=== PATIENT | male | born 1975 | race Caucasian/White ===

== ENCOUNTER 2017-03-18 17:07 | Observation (INO) | payer MEDICAID, OTHER ==
[2017-03-18 17:07] VITALS: BMI 28.6
[2017-03-18 17:24] VITALS: BP 97/71; PULSE 60; RESP 17; TEMP 98.4; O2SAT 100
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
--- NOTE | 2017-03-18 22:57 | ED PDOC ---
- ECG O2 Sat by Pulse Oximetry: 100 Medical Decision Making Medical Decision Making: pt signed out to me pending sobriety. ambulatory steady gait. no signs of withdrawl. will d/c home. Disposition - Clinical Impression Clinical Impression: Alcohol abuse with intoxication, Rib contusion - POA Present On Arrival: None - Disposition Disposition: Routine/Home Disposition Time: 22:55 Condition: GOOD
== END 2017-03-19 04:14 | disposition home or self-care (01) ==
LOC: H.ER 17:07 → H.EROBSV 17:54
PROVIDERS: ADMIT Emergency Medicine; ATTEND Emergency Medicine
DX: F10.129 Alcohol abuse with intoxication, unspecified (principal); Y90.8 Blood alcohol level of 240 mg/100 ml or more; S20.212D Contusion of left front wall of thorax, subsequent encounter; Y09 Assault by unspecified means

== ENCOUNTER 2017-03-25 10:37 | Emergency (ER) | payer MEDICAID ==
[2017-03-25 10:52] VITALS: TEMP 97; O2SAT 99; BMI 21.2
[2017-03-25 11:02] VITALS: BP 118/70; PULSE 84; RESP 20
--- NOTE | 2017-03-25 11:15 | ED PDOC ---
HPI: Skin/Bite Injury Time Seen by Provider: 03/25/17 10:59 Chief Complaint (Nursing): Anxiety Chief Complaint (Provider): Boils History Per: Patient History/Exam Limitations: no limitations Onset/Duration Of Symptoms: Days (1 month) Current Symptoms Are (Timing): Still Present Additional Complaint(s): Axilla and few scattered in groin and legs with boils. Ongoing for 1 month. Squeezes them and occasionally gets purulent dc. Mild tender. Occasionally gets chills. No nausea, vomit, diarrhea, weakness, abd pain, headaches, dizziness. No testicular pain. Past Medical History Reviewed: Nursing Documentation, Vital Signs Vital Signs: Last Vital Signs Temp 97 F L 03/25/17 10:59 Pulse 84 03/25/17 10:59 Resp 20 03/25/17 10:59 BP 118/70 03/25/17 10:59 Pulse Ox 99 03/25/17 10:59 - Medical History PMH: No Chronic Diseases Denies: HIV, HTN, Chronic Kidney Disease, Sexually Transmitted Disease - Surgical History Surgical History: No Surg Hx - Family History Family History: States: Unknown Family Hx - Living Arrangements Living Arrangements: Other (homeless) - Social History Current smoker - smoking cessation education provided: No Alcohol: Occasional Drugs: Denies - Immunization History Hx Tetanus Toxoid Vaccination: No Hx Influenza Vaccination: No Hx Pneumococcal Vaccination: No - Home Medications Home Medications: Ambulatory Orders Medication Instructions Recorded Clindamycin [Cleocin] 300 mg PO QID 7 Days 03/25/17 - Allergies Allergies/Adverse Reactions: Allergies Allergy/AdvReac Type Severity Reaction Status Date / Time ibuprofen Allergy ANGIOEDEMA Verified 03/25/17 10:58 Review of Systems Constitutional: Positive for: Chills. Negative for: Fever, Weakness Eyes: Negative for: Vision Change ENT: Negative for: Nose Pain, Nose Discharge, Nose Congestion, Mouth Pain, Throat Pain Cardiovascular: Negative for: Chest Pain, Light Headedness Respiratory: Negative for: Cough, Shortness of Breath Gastrointestinal: Negative for: Nausea, Vomiting, Abdominal Pain Genitourinary Male: Negative for: Dysuria Musculoskeletal: Negative for: Neck Pain, Shoulder Pain, Arm Pain Skin: Positive for: Other (boils) Neurological: Negative for: Weakness Physical Exam - Reviewed Nursing Documentation Reviewed: Yes Vital Signs Reviewed: Yes - Physical Exam Appears: Positive for: Well, Non-toxic, No Acute Distress Head Exam: Positive for: ATRAUMATIC, NORMAL INSPECTION, NORMOCEPHALIC Skin: Positive for: Rash (b/l axilla and groin b/l and thighs b/l with few scattered small raised nonfluctuant boil like areas; no induration; no erythema ; nontender) Eye Exam: Positive for: Normal appearance ENT: Positive for: Normal ENT Inspection. Negative for: Nasal Congestion, Pharyngeal Erythema, Tonsillar Exudate Neck: Positive for: Normal, Painless ROM, Supple Cardiovascular/Chest: Positive for: Regular Rate, Rhythm Respiratory: Positive for: Normal Breath Sounds Gastrointestinal/Abdominal: Positive for: Normal Exam, Soft. Negative for: Tenderness Male Genital Exam: Negative for: scrotum tenderness (R), scrotum tenderness (L) , testicular tenderness (R), testicular tenderness (L) Back: Positive for: Normal Inspection. Negative for: L CVA Tenderness, R CVA Tenderness Extremity: Positive for: Normal ROM. Negative for: Tenderness, Pedal Edema Neurologic/Psych: Positive for: Alert, Oriented - ECG O2 Sat by Pulse Oximetry: 99 Pulse Ox Interpretation: Normal - Progress ED Course And Treament: 1119: Pt. with chronic boil areas. Possible chronic abscess vs. cellulitis. No fever. Tolerated PO. Advised to keep areas clean and have good hygiene. Fu with clinic. Disposition - Clinical Impression Clinical Impression: Cellulitis - Patient ED Disposition Is Patient to be Admitted: No Counseled Patient/Family Regarding: Diagnosis, Need For Followup, Rx Given - Disposition Referrals: [facility] [Outside] - 03/27/17 Disposition: Routine/Home Disposition Time: 11:22 Condition: FAIR Additional Instructions: Return if not better in 3 days. Prescriptions: Clindamycin [Cleocin] 300 mg PO QID 7 Days Instructions: Cellulitis (ED)
== END 2017-03-25 11:36 | disposition home or self-care (01) ==
LOC: H.ER 10:37
DX: L03.90 Cellulitis, unspecified (principal)

== ENCOUNTER 2017-04-28 21:33 | Emergency (ER) | payer MEDICAID ==
[2017-04-28 21:36] VITALS: BMI 19.8
[2017-04-28] MEDS ORDERED: Sodium Chloride 0.9% 1,000 ML IV STA (21:40)
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
[2017-04-28 21:54] LABS: BASO # 0.1 K/uL (0.0-0.2); BASO % 0.9 % (0.0-2.0); EOS # 0.5 K/uL (0.0-0.7); EOS % 3.9 % (0.0-4.0); HEMOGLOBIN 14.5 g/dL (12.0-18.0); LYMPH # 5.4 K/uL (1.0-4.3); LYMPH % 38.4 % (20.0-40.0); MEAN CELL VOLUME 93.2 fl (80.0-94.0); MEAN CORPUSCULAR HEMOGLOBIN 31.2 pg (27.0-31.0); MEAN CORPUSCULAR HGB CONC 33.5 g/dL (33.0-37.0); MEAN PLATELET VOLUME 7.9 fl (7.2-11.7); MONO # 0.8 K/uL (0.0-0.8); NEUT # 7.1 K/uL (1.8-7.0); NEUT % 50.8 % (50.0-75.0); RBC 4.63 Mil/uL (4.40-5.90); RED CELL DISTRIBUTION WIDTH 15.1 % (11.5-14.5); WHITE BLOOD COUNT 13.9 K/uL (4.8-10.8)
[2017-04-28 22:17] LABS: ALB/GLOB RATIO 1.4 (1.0-2.1); ALBUMIN 4.6 g/dL (3.5-5.0); ALT/SGPT 41 U/L (21-72); AST/SGOT 50 U/L (17-59); BLOOD UREA NITROGEN 15 mg/dl (9-20); CALCIUM 8.8 mg/dL (8.4-10.2); GFR AFRICAN-AMERICAN > 60; GFR NON-AFRICAN AMERICAN > 60; MAGNESIUM 2.2 MG/DL (1.6-2.3)
[2017-04-28] MEDS ORDERED: Multivitamin (MVI) 10 ML, Thiamine 100 MG, Folic Acid 1 MG in Sodium Chloride 0.9% 1,00... IV ONE (22:29)
[2017-04-28 22:30] LABS: PARTIAL THROMBOPLASTIN TIME 31.8 Seconds (25.6-37.1); PROTHROMBIN TIME 11.6 Seconds (9.8-13.1)
--- NOTE | 2017-04-28 23:08 | CT ---
EXAM: CT Head Without Intravenous Contrast CLINICAL HISTORY: 36 years old, male; Injury or trauma; Fall; Initial encounter; Blunt trauma (contusions or hematomas); Patient HX: Per radiologist repeat study. Addendum to be added TECHNIQUE: Axial computed tomography images of the head/brain without intravenous contrast. This CT exam was performed using one or more of the following dose reduction techniques: automated exposure control, adjustment of the mA and/or kV according to patient size, and/or use of iterative reconstruction technique. Coronal and sagittal reformatted images were created and reviewed. EXAM DATE/TIME: Exam ordered 04/29/2017 12:26 AM COMPARISON: CT - HEAD W/O CONTRAST 04/28/2017 10:16:21 PM FINDINGS: Brain: Ventricles are concordant with sulci. No hemorrhage. No significant white matter disease. No edema. Noting reported age of 36 years, suggestion of volume loss. Ventricles: See above. Bones/joints: There is irregularity of the left inferior orbital floor seen coronal series 608 image 22 and it is favored that this represents inferior orbital floor fracture although of indeterminate age. There is no imaging finding to suggest muscle entrapment, clinical correlation is recommended. There is a fracture of the right anterior maxillary wall, and lowest image series 12 image 1, with no fluid seen in the right maxillary sinus and noting that this may be from previous trauma. Soft tissues: There is mild frontal left greater than right extracranial soft tissue swelling. Sinuses: Patchy mucoperiosteal disease in the ethmoid sinuses. Mastoid air cells: Unremarkable as visualized. No mastoid effusion. Other findings: Comparison to head CT dated April 28 22:18 PM. In the interim the patient has been extubated. The present study is greatly improved quality. IMPRESSION: Suspicion for right anterior maxillary and left inferior orbital fractures, and noting these may be chronic and there are no specific signs that would suggest that either of these is acute. Clinical correlation. No fracture of the calvarium. No intracranial hemorrhage.
--- NOTE | 2017-04-28 23:19 | CT ---
EXAM: CT Cervical Spine Without Intravenous Contrast CLINICAL HISTORY: 36 years old, male; Injury or trauma; Injury Pt found in [facility]. Injury, info unobtainable; Initial encounter; Concussion /head injury; Additional info: Possible head injury intoxication TECHNIQUE: Axial computed tomography images of the cervical spine without intravenous contrast. This CT exam was performed using one or more of the following dose reduction techniques: automated exposure control, adjustment of the mA and/or kV according to patient size, and/or use of iterative reconstruction technique. Coronal and sagittal reformatted images were created and reviewed. EXAM DATE/TIME: Exam ordered 04/28/2017 9:39 PM COMPARISON: No relevant prior studies available. FINDINGS: Vertebrae: Unremarkable. No acute fracture. Discs/spinal canal/neural foramina: Disc bulge at C3-C4 - mild narrowing of the thecal sac Mild narrowing at C4-C5 also related to posterior osteophytes, the disc osteophyte complex at that level causing impingement on the cord left greater than right. Narrowing of the bony spinal canal is most severe at C5-C6, right greater than left, where there is cord impingement related to uncovertebral joint hypertrophy right greater than left. Motion artifact greatly limits evaluation below the C7 level. Other bones/joints: The skull base is better seen than on the head CT, although there is still some mild limitation by motion artifact there is better visualization than on the head CT with no apparent fracture of the skull base. Soft tissues: Unremarkable. Lymph nodes: Cervical nodes up to at least 9 mm short axis, see sagittal image 14. Nasopharynx: Mild adenoidal prominence. Esophagus: Air in the esophagus in keeping with reflux. Lung apices: Unremarkable as visualized. Other findings: There is no evidence to suggest jumped facets. IMPRESSION: Degenerative changes as above with no evidence of acute fractures. Multilevel narrowing of the spinal canal as detailed above. Mild prominence of the adenoids, nodes as above.
[2017-04-28 23:20] VITALS: TEMP 97.9
[2017-04-28 23:39] LABS: BARBITURATES, UR NEGATIVE (NEGATIVE); BENZODIAZEPINES, UR NEGATIVE (NEGATIVE); OPIATES, UR NEGATIVE (NEGATIVE); PHENCYCLIDINE, UR POSITIVE (NEGATIVE)
--- NOTE | 2017-04-29 01:47 | ED PDOC ---
- Laboratory Results Result Diagrams: 04/28/17 21:45 04/28/17 21:45 - ECG O2 Sat by Pulse Oximetry: 99 (RA) Medical Decision Making Medical Decision Makin Patient signed over to me from Ana Luisa Gomes MD pending sobriety. 230 CT HEAD FINDINGS Brain: please note specifically the areas that can not be evaluated include the entirety of the cerebellum and majority of the bilateral temporal lobes particularly the left. In the areas that can be evaluated , no findings of hemorrhage significant white matter disease, edema. Ventricles: Unremarkable. No ventriculomegaly. Bones/joints: Substantial motion artifact limits evaluation of the skull base, and the skull base cannot be cleared on the present study. No acute fracture within limits of the study. Soft tissues: Unremarkable. Sinuses: Unremarkable as visualized. No acute sinusitis. Mastoid air cells: No apparent fluid within the mastoid air cells. Tubes, lines and devices: A nasotracheal tube is partially imaged. Other findings: The pterygoid plates do appear intact. IMPRESSION: This is an incomplete examination related to substantial patient motion and artifact affecting the cerebellum and portions of both temporal lobes, advise repeat that portion of the examination so that an addendum can be issued. Within the great limits of the examination, there are no definitive fractures and no definitive evidence intracranial hemorrhage, evaluation for edema is particularly severely affected by motion Will re-do CT HEAD. 2318 CT CERVICAL SPINE FINDINGS Vertebrae: Unremarkable. No acute fracture. Discs/spinal canal/neural foramina: Disc bulge at C3-C4 - mild narrowing of the thecal sac Mild narrowing at C4-C5 also related to posterior osteophytes, the disc osteophyte complex at that level causing impingement on the cord left greater than right. Narrowing of the bony spinal canal is most severe at C5-C6, right greater than left, where there is cord impingement related to uncovertebral joint hypertrophy right greater than left. Motion artifact greatly limits evaluation below the C7 level. Other bones/joints: The skull base is better seen than on the head CT, although there is still some mild limitation by motion artifact there is better visualization than on the head CT with no apparent fracture of the skull base. Soft tissues: Unremarkable. Lymph nodes: Cervical nodes up to at least 9 mm short axis, see sagittal image 14. Nasopharynx: Mild adenoidal prominence. Esophagus: Air in the esophagus in keeping with reflux. Lung apices: Unremarkable as visualized. Other findings: There is no evidence to suggest jumped facets. IMPRESSION: Degenerative changes as above with no evidence of acute fractures. Multilevel narrowing of the spinal canal as detailed above. Mild prominence of the adenoids, nodes as above. [address] HEAD FINDINGS Brain: Ventricles are concordant with sulci. No hemorrhage. No significant white matter disease. No edema. Noting reported age of 36 years, suggestion of volume loss. Ventricles: See above. Bones/joints: There is irregularity of the left inferior orbital floor seen coronal series 608 image 22 and it is favored that this represents inferior orbital floor fracture although of indeterminate age. There is no imaging finding to suggest muscle entrapment, clinical correlation is recommended. There is a fracture of the right anterior maxillary wall, and lowest image series 12 image 1, with no fluid seen in the right maxillary sinus and noting that this may be from previous trauma. Soft tissues: There is mild frontal left greater than right extracranial soft tissue swelling. Sinuses: Patchy mucoperiosteal disease in the ethmoid sinuses. Mastoid air cells: Unremarkable as visualized. No mastoid effusion. Other findings: Comparison to head CT dated April 28 22:18 PM. In the interim the patient has been extubated. The present study is greatly improved quality. IMPRESSION: Suspicion for right anterior maxillary and left inferior orbital fractures, and noting these may be chronic and there are no specific signs that would suggest that either of these is acute. Clinical correlation. No fracture of the calvarium. No intracranial hemorrhage No signs of acute trauma on patient's face. Findings likely old. Scribe Attestation: Documented by Veronique Kimble acting as a scribe for Hemanth Chan MD. Scribe Attestation: All medical record entries made by the Scribe were at my direction and personally dictated by me. I have reviewed the chart and agree that the record accurately reflects my personal performance of the history, physical exam, medical decision making, and the department course for this patient. I have also personally directed, reviewed, and agree with the discharge instructions and disposition. Disposition - Clinical Impression Clinical Impression: Alcohol abuse - POA Present On Arrival: None - Disposition Referrals: Alcoholics Anonymous [Outside] Disposition: Routine/Home Disposition Time: 06:00 Condition: STABLE Instructions: Alcohol Intoxication (ED) ED OBSERVATION Discharge: Yes Date of observation admission: 04/28/17 Time of observation admission: 22:10 (ED OBS admission under Dr. Gomes) - Observation admission statement Patient is being placed in observation because:: ED work up - Goals of Observation Goals of observation are:: Sobriety - Progress Note Progress Note: 04/29/17 00:00 Patient resting comfortably. 04/29/17 01:22 Patient's vitals are stable. 04/29/17 02:08 Patient resting comfortably. 04/29/17 03:24 Patient resting comfortably. 04/29/17 04:31 Patient resting comfortably. 04/29/17 05:14 Patient is awake, alert, and oriented. Walks with a steady gait. Stable to be discharged home.
[2017-04-29 06:13] VITALS: BP 116/71; PULSE 86; RESP 16
[2017-04-29 06:22] VITALS: O2SAT 99
--- NOTE | 2017-04-29 08:32 | CARD ---
APPROVED REPORT EKG Measurement Heart [id number] <Conclusion> Normal sinus rhythm Cannot rule out Inferior infarct, age undetermined Abnormal ECG
== END 2017-04-29 07:15 | disposition home or self-care (01) ==
LOC: EDBD 21:33 → H.ER 21:33 → MERGE 21:33 → H.ER 04-29 07:15
DX: F10.10 Alcohol abuse, uncomplicated (principal); Y90.8 Blood alcohol level of 240 mg/100 ml or more

== ENCOUNTER 2017-05-07 12:06 | Emergency (ER) | payer MEDICAID ==
[2017-05-07 12:07] VITALS: BMI 19.8
[2017-05-07 12:22] VITALS: BP 142/87; PULSE 98; RESP 18; TEMP 97.8; O2SAT 100
--- NOTE | 2017-05-07 12:56 | ED PDOC ---
HPI: General Adult Time Seen by Provider: 05/07/17 12:08 Chief Complaint (Nursing): Trauma Chief Complaint (Provider): Fall Type Injury History Per: Patient History/Exam Limitations: no limitations Onset/Duration Of Symptoms: Hrs Have you had recent travel within the past 21 days to any of the following countries: [place], [place], [place] or [place]?: No Current Symptoms Are (Timing): Still Present Additional Complaint(s): Ben Lemus, a 41 year old male, presents to the ED for a fall. The patient reports that he had been drinking and fell. He states that he woke up on the floor and coughed up a blood clot and then pulled a clot out of his nose. The patient states that he might have lost consciousness for a few minutes but is not sure. Past Medical History Reviewed: Historical Data, Nursing Documentation, Vital Signs Vital Signs: Last Vital Signs Temp 97.8 F 05/07/17 12:19 Pulse 98 H 05/07/17 12:19 Resp 18 05/07/17 12:19 BP 142/87 05/07/17 12:19 Pulse Ox 100 05/07/17 14:54 - Medical History PMH: No Chronic Diseases Denies: HIV, HTN, Chronic Kidney Disease, Sexually Transmitted Disease - Surgical History Surgical History: No Surg Hx - Family History Family History: States: Unknown Family Hx - Social History Alcohol: > 2 Drinks/Day Drugs: Other (Marijuana) - Immunization History Hx Tetanus Toxoid Vaccination: No Hx Influenza Vaccination: No Hx Pneumococcal Vaccination: No - Home Medications Home Medications: Ambulatory Orders Medication Instructions Recorded Ciprofloxacin 0.3% [Ciloxan 0.3% 2 drop .ROUTE DAILY #1 bottle 05/07/17 Ophth SOLN] Polymyxin/Trimethoprim Sulfate 1 drop XX Q6H 10 Days 05/07/17 [Polytrim Ophth Soln] - Allergies Allergies/Adverse Reactions: Allergies Allergy/AdvReac Type Severity Reaction Status Date / Time ibuprofen Allergy ANGIOEDEMA Verified 03/25/17 10:58 Review of Systems ENT: Positive for: Other (Coughed up blood clot and pulled a clot out of his nose.) Neurological: Negative for: Weakness, Dizziness Physical Exam - Reviewed Nursing Documentation Reviewed: Yes Vital Signs Reviewed: Yes - Physical Exam Appears: Positive for: Non-toxic, No Acute Distress Head Exam: Positive for: NORMAL INSPECTION (Abrasion to right face; Tenderness to right mastoid area.), NORMOCEPHALIC Skin: Positive for: Normal Color, Warm, Dry Eye Exam: Positive for: EOMI (Injection of right scelera and conjunctiva.), PERRL (Pupils are small but reactive bilaterally), Conjunctival injection ( Injection of right scelera and conjunctiva.), Other (Tenderness of the right maxilla ) ENT: Positive for: TM Is/Are (Perforation of the right TM). Negative for: Normal ENT Inspection Neck: Positive for: Normal, Painless ROM, Supple Cardiovascular/Chest: Positive for: Regular Rate, Rhythm, Chest Non Tender. Negative for: Tachycardia Respiratory: Positive for: Normal Breath Sounds. Negative for: Wheezing, Respiratory Distress Gastrointestinal/Abdominal: Positive for: Normal Exam, Bowel Sounds, Soft. Negative for: Tenderness, Guarding, Rebound Back: Positive for: Normal Inspection Extremity: Positive for: Normal ROM. Negative for: Tenderness, Pedal Edema, Deformity, Swelling Neurologic/Psych: Positive for: Alert, Oriented, Gait - ECG O2 Sat by Pulse Oximetry: 100 (RA) Pulse Ox Interpretation: Normal Medical Decision Making Medical Decision Making: Initial Impression: 41 year old female presenting with fall type injury Initial Plan: * CT Head w/o contrast * CT maxillofacial w/o contrast * Reevaluation No acute findings Fracture of thr right maxilla seen on previous. EOMI intact. Scribe Attestation Documented by Hafsa Chawla acting as a scribe for Jo-Ann Lerma PA-C. Scribe Attestation All medical record entries made by the Scribe were at my direction and personally dictated by me. I have reviewed the chart and agree that the record accurately reflects my personal performance of the history, physical exam, medical decision making, and the department course for this patient. I have also personally directed, reviewed, and agree with the discharge instructions and disposition. Disposition - Clinical Impression Clinical Impression: Perforation of right tympanic membrane, Facial injury - Patient ED Disposition Is Patient to be Admitted: No Counseled Patient/Family Regarding: Diagnosis, Need For Followup, Rx Given - Disposition Referrals: Stanislav Peterson MD [Staff Provider] - Romeo Daniels MD [Staff Provider] - Disposition: Routine/Home Disposition Time: 15:09 Condition: GOOD Prescriptions: Ciprofloxacin 0.3% [Ciloxan 0.3% Ophth SOLN] 2 drop .ROUTE DAILY #1 bottle Polymyxin/Trimethoprim Sulfate [Polytrim Ophth Soln] 1 drop XX Q6H 10 Days Instructions: Ruptured Eardrum (ED)
--- NOTE | 2017-05-07 14:03 | CT ---
PROCEDURE: CT HEAD WITHOUT CONTRAST. HISTORY: Fall while intoxicated, headache, right TM perforate COMPARISON: 07/04/2015. TECHNIQUE: Axial computed tomography images were obtained through the head/brain without intravenous contrast. Radiation dose: Total exam DLP = 73.29 mGy-cm. This CT exam was performed using one or more of the following dose reduction techniques: Automated exposure control, adjustment of the mA and/or kV according to patient size, and/or use of iterative reconstruction technique. FINDINGS: HEMORRHAGE: No intracranial hemorrhage. BRAIN: Buckley-white matter differentiation is preserved. There is no mass, mass effect or abnormal extra-axial fluid collection. VENTRICLES: The ventricles are normal in size, shape and configuration. CALVARIUM: The skull base and calvarium are normal. PARANASAL SINUSES: Predominantly clear. MASTOID AIR CELLS: Predominantly clear. OTHER FINDINGS: None. IMPRESSION: No acute intracranial abnormality.
--- NOTE | 2017-05-07 14:14 | CT ---
PROCEDURE: CT MAXILLOFACIAL BONES WITHOUT CONTRAST HISTORY: right sided facial trauma, right eye pain COMPARISON: None TECHNIQUE: Contiguous axial CT images of the maxillofacial bones were obtained. Coronal and sagittal reformats were generated. Radiation dose: Total exam DLP = 692.79 mGy-cm. This CT exam was performed using one or more of the following dose reduction techniques: Automated exposure control, adjustment of the mA and/or kV according to patient size, and/or use of iterative reconstruction technique. FINDINGS: NASAL BONES: There is an age indeterminate but likely chronic nondisplaced left nasal bone fracture. ORBITS: There is no evidence of acute orbital fracture. PARANASAL SINUSES/ MASTOIDS: There is mild mucosal thickening in the left posterior ethmoid air cell. The remaining included paranasal sinuses are predominantly clear. The nasal septum is deviated to the left with a mid septal bony spur indenting the left inferior turbinate. MAXILLA: Acute nondisplaced fracture in the anterior wall. No evidence of fluid in the maxillary sinus. MANDIBLE/ TEMPOROMANDIBULAR JOINTS: There is no evidence of acute fracture in the mandible. The temporomandibular joints are normally located. SKULL BASE: Unremarkable. TEMPORAL BONES: Middle ears and mastoid grossly unremarkable. OTHER FINDINGS: There is mild right facial soft tissue swelling. IMPRESSION: 1. Acute nondisplaced fracture in the anterior wall of the right maxilla with mild overlying soft tissue swelling. 2. Age indeterminate but likely chronic nondisplaced left nasal bone fracture.
== END 2017-05-07 15:25 | disposition home or self-care (01) ==
LOC: H.ER 12:06
DX: S09.93XA Unspecified injury of face, initial encounter (principal); H72.91 Unspecified perforation of tympanic membrane, right ear; W19.XXXA Unspecified fall, initial encounter; Y92.89 Other specified places as the place of occurrence of the external cause; F10.10 Alcohol abuse, uncomplicated

== ENCOUNTER 2017-11-18 14:29 | Emergency (ER) | payer MEDICAID ==
--- NOTE | 2017-11-18 14:39 | ED PDOC ---
HPI: Psych/Substance Abuse Time Seen by Provider: 11/18/17 14:35 Chief Complaint (Nursing): Substance Abuse Chief Complaint (Provider): Alcohol abuse ED Caveat: Intoxicated History Per: Patient History/Exam Limitations: no limitations Onset/Duration Of Symptoms: Days (today) Current Symptoms Are (Timing): Still Present Additional Complaint(s): Pt. found in [facility] being aggressive. Pt. admits to marijuana, pcp, and alcohol use. Pt. denies any pain or falling. Not suicidal or homicidal. Limited H and P. Past Medical History Reviewed: Nursing Documentation, Vital Signs Vital Signs: Last Vital Signs Temp 98.1 F 11/18/17 14:30 Pulse 74 11/18/17 14:30 Resp 16 11/18/17 14:30 BP 108/80 11/18/17 14:30 Pulse Ox 95 11/18/17 14:30 - Family History Family History: States: Unknown Family Hx - Allergies Allergies/Adverse Reactions: Allergies Allergy/AdvReac Type Severity Reaction Status Date / Time Unobtainable Allergy Verified 11/18/17 14:30 Review of Systems Review Of Systems: ROS cannot be obtained secondary to pt's inabilty to answer questions. Physical Exam - Reviewed Nursing Documentation Reviewed: Yes Vital Signs Reviewed: Yes - Physical Exam Appears: Positive for: Non-toxic, No Acute Distress Head Exam: Positive for: ATRAUMATIC, NORMAL INSPECTION, NORMOCEPHALIC Skin: Positive for: Normal Color, Warm, DRY Eye Exam: Positive for: EOMI, Normal appearance, PERRL ENT: Positive for: Normal ENT Inspection Neck: Positive for: Normal, Painless ROM, Supple Cardiovascular/Chest: Positive for: Regular Rate, Rhythm Respiratory: Positive for: CNT, Normal Breath Sounds Gastrointestinal/Abdominal: Positive for: Normal Exam, Bowel Sounds, Soft. Negative for: Tenderness Back: Positive for: Normal Inspection. Negative for: L CVA Tenderness, R CVA Tenderness Extremity: Positive for: Normal ROM. Negative for: Tenderness, Pedal Edema Neurologic/Psych: Positive for: Alert, Other (Limited exam as pt. is not cooperative. Aggressive and cursing at staff.). Negative for: Oriented - Laboratory Results Result Diagrams: 11/18/17 14:56 11/18/17 15:07 Interpretation Of Abn Labs: 310 etoh - ECG O2 Sat by Pulse Oximetry: 95 Pulse Ox Interpretation: Normal - CT Scan/US head Other Rad Studies (CT/US): Read By Radiologist Other Rad Interpretation: no acute - Progress ED Course And Treament: 2320: Stable. AAOx3. Pain free. Tolerated PO. Ambulated with no issues. Disposition - Clinical Impression Clinical Impression: Alcohol intoxication - Patient ED Disposition Is Patient to be Admitted: No Counseled Patient/Family Regarding: Studies Performed, Diagnosis, Need For Followup - Disposition Referrals: [facility] [Outside] - 11/19/17 Disposition: Routine/Home Disposition Time: 20:20 Condition: STABLE Additional Instructions: Return if not better in 3 days. Instructions: Abuse of Alcohol (ED)
[2017-11-18 15:13] LABS: BASO % 0.6 % (0.0-2.0); EOS # 0.4 K/uL (0.0-0.7); EOS % 5.3 % (0.0-4.0); HEMOGLOBIN 14.5 g/dL (12.0-18.0); LYMPH # 2.6 K/uL (1.0-4.3); LYMPH % 37.1 % (20.0-40.0); MEAN CELL VOLUME 97.5 fl (80.0-94.0); MEAN CORPUSCULAR HEMOGLOBIN 32.3 pg (27.0-31.0); MEAN CORPUSCULAR HGB CONC 33.1 g/dL (33.0-37.0); MEAN PLATELET VOLUME 7.7 fl (7.2-11.7); MONO # 0.7 K/uL (0.0-0.8); MONO % 10.2 % (0.0-10.0); NEUT # 3.2 K/uL (1.8-7.0); NEUT % 46.8 % (50.0-75.0); NRBC % 0.1 % (0.0-0.0); RBC 4.48 Mil/uL (4.40-5.90); RED CELL DISTRIBUTION WIDTH 13.8 % (11.5-14.5); WHITE BLOOD COUNT 6.9 K/uL (4.8-10.8)
[2017-11-18 15:51] LABS: ALB/GLOB RATIO 1.4 (1.0-2.1); ALBUMIN 4.6 g/dL (3.5-5.0); ALT/SGPT 162 U/L (21-72); AST/SGOT 87 U/L (17-59); BLOOD UREA NITROGEN 14 mg/dl (9-20); CALCIUM 9.5 mg/dL (8.4-10.2); GFR AFRICAN-AMERICAN > 60; GFR NON-AFRICAN AMERICAN > 60
--- NOTE | 2017-11-18 16:34 | CT ---
PROCEDURE: CT HEAD WITHOUT CONTRAST. HISTORY: headache COMPARISON: None available. TECHNIQUE: Axial computed tomography images were obtained through the head/brain without intravenous contrast. Radiation dose: Total exam DLP = 1074 mGy-cm. This CT exam was performed using one or more of the following dose reduction techniques: Automated exposure control, adjustment of the mA and/or kV according to patient size, and/or use of iterative reconstruction technique. FINDINGS: HEMORRHAGE: No intracranial hemorrhage. BRAIN: No mass effect or edema. No atrophy or chronic microvascular ischemic changes. VENTRICLES: Unremarkable. No hydrocephalus. CALVARIUM: Unremarkable. PARANASAL SINUSES: Left mid to posterior mucosal thickening with retention cysts. MASTOID AIR CELLS: Unremarkable as visualized. No inflammatory changes. OTHER FINDINGS: None. IMPRESSION: No intracranial hemorrhage or mass effect. Left ethmoidal sinus retention cysts
[2017-11-18] MEDS ORDERED: Sodium Chloride 0.9% 1,000 ML IV STA (20:00)
[2017-11-18 20:52] VITALS: RESP 16
[2017-11-18 23:21] VITALS: BP 98/60; PULSE 80; TEMP 98; O2SAT 95
== END 2017-11-18 23:29 | disposition home or self-care (01) ==
LOC: H.ER 14:29 → MERGE 14:29 → EDBD 14:29 → UNMERGE 14:29 → H.ER 23:29
DX: F10.129 Alcohol abuse with intoxication, unspecified (principal); F98.9 Unspecified behavioral and emotional disorders with onset usually occurring in childhood and adolescence
CPT/HCPCS: 70450; 80053; 80320; 82948; 85025; 96360; 96372; 99285; J2060; J7040

== ENCOUNTER 2017-12-17 10:55 | Emergency (ER) | payer MEDICAID ==
[2017-12-17 10:55] VITALS: BMI 24.3
--- NOTE | 2017-12-17 11:48 | ED PDOC ---
HPI: Psych/Substance Abuse Time Seen by Provider: 12/17/17 11:47 Chief Complaint (Nursing): Alcohol Ingestion Chief Complaint (Provider): ALCOHOL INGESTION History Per: Patient (42 Y/O MALE HERE FOR EVALUATION OF APPARENT ALCOHOL INTOXICATION. UNABLE TO ANSWER QUESTIONS IN ED.) Past Medical History Reviewed: Historical Data, Nursing Documentation, Vital Signs - Medical History PMH: Denies: HIV, HTN, Chronic Kidney Disease, Sexually Transmitted Disease - Family History Family History: States: Unknown Family Hx - Immunization History Hx Tetanus Toxoid Vaccination: No Hx Influenza Vaccination: No Hx Pneumococcal Vaccination: No - Home Medications Home Medications: Ambulatory Orders Medication Instructions Recorded Unobtainable 05/18/17 - Allergies Allergies/Adverse Reactions: Allergies Allergy/AdvReac Type Severity Reaction Status Date / Time ibuprofen Allergy ANGIOEDEMA Verified 11/28/17 13:59 Review of Systems ROS Statement: Except As Marked, All Systems Reviewed And Found Negative Physical Exam - Reviewed Nursing Documentation Reviewed: Yes Vital Signs Reviewed: Yes - Physical Exam Appears: Positive for: Well, Non-toxic, No Acute Distress Head Exam: Positive for: ATRAUMATIC, NORMAL INSPECTION, NORMOCEPHALIC Skin: Positive for: Normal Color, Warm, DRY Eye Exam: Positive for: EOMI, Normal appearance, PERRL ENT: Positive for: Normal ENT Inspection Neck: Positive for: Normal, Painless ROM Cardiovascular/Chest: Positive for: Regular Rate, Rhythm Respiratory: Positive for: CNT, Normal Breath Sounds Gastrointestinal/Abdominal: Positive for: Normal Exam, Bowel Sounds, Soft Back: Positive for: Normal Inspection Extremity: Positive for: Normal ROM Neurologic/Psych: Positive for: Alert, Oriented - Progress ED Course And Treament: PATIENT NOTED WITH STEADY GAIT AND PROGRESSIVELY IMPROVING SOBRIETY. Disposition - Clinical Impression Clinical Impression: Alcohol abuse with intoxication - Patient ED Disposition Is Patient to be Admitted: No - Disposition Referrals: [facility] [Outside] Disposition: Routine/Home Disposition Time: 16:28 Condition: FAIR Instructions: Alcohol Abuse and Alcoholism (DC) Forms: [facility] [place] ([place]e)
[2017-12-17 16:29] VITALS: PULSE 87; RESP 18; O2SAT 100
== END 2017-12-17 16:29 | disposition home or self-care (01) ==
LOC: H.ER 10:55
DX: F10.129 Alcohol abuse with intoxication, unspecified (principal)

== ENCOUNTER 2018-01-04 17:01 | Emergency (ER) | payer MEDICAID ==
[2018-01-04 17:01] VITALS: BMI 24.3
[2018-01-04 17:14] VITALS: BP 118/82; PULSE 82; RESP 16; TEMP 98.1; O2SAT 100
[2018-01-04] MEDS ORDERED: guaiFENesin 100 mg/5 ml Syrup UD PO STA (18:12)
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
== END 2018-01-04 18:45 | disposition left against medical advice (07) ==
LOC: H.ER 17:01
DX: R05 Cough (principal); R11.2 Nausea with vomiting, unspecified; F17.210 Nicotine dependence, cigarettes, uncomplicated

== ENCOUNTER 2018-01-09 15:51 | Emergency (ER) | payer MEDICAID ==
[2018-01-09 15:51] VITALS: BMI 24.3
[2018-01-09 15:59] VITALS: TEMP 97.8
--- NOTE | 2018-01-09 16:00 | ED PDOC ---
HPI: Psych/Substance Abuse Time Seen by Provider: 01/09/18 15:53 Chief Complaint (Nursing): Alcohol Ingestion Chief Complaint (Provider): Alcohol abuse ED Caveat: Intoxicated, Uncooperative History Per: Other (Margarita HEIN) History/Exam Limitations: intoxication Additional Complaint(s): 42 yo male, brought to ER by Margarita HEIN after he was found publicly intoxicated and brought in with restraints. Patient is uncooperative so a full HPI is unavailable. He is verbally abusive, cursing loudly and making threats to this MD and nursing staff. The patient is currently in 4 point restraints and has no external evidence of trauma. Past Medical History Reviewed: Historical Data, Nursing Documentation, Vital Signs, Unable To Obtain - Medical History PMH: Denies: HIV, HTN, Chronic Kidney Disease, Sexually Transmitted Disease - Surgical History Surgical History: No Surg Hx - Family History Family History: States: Unknown Family Hx - Immunization History Hx Tetanus Toxoid Vaccination: No Hx Influenza Vaccination: No Hx Pneumococcal Vaccination: No - Home Medications Home Medications: Ambulatory Orders Medication Instructions Recorded No Known Home Med 12/31/17 - Allergies Allergies/Adverse Reactions: Allergies Allergy/AdvReac Type Severity Reaction Status Date / Time ibuprofen Allergy ANGIOEDEMA Verified 12/31/17 15:32 Review of Systems Review Of Systems: ROS cannot be obtained secondary to pt's inabilty to answer questions. (patient refusing to answer questions) Constitutional: Positive for: Other (no external signs of trauma) Physical Exam - Reviewed Nursing Documentation Reviewed: Yes Vital Signs Reviewed: Yes - Physical Exam Appears: Positive for: In Acute Distress (pt is obviouslydrunk,pos ETOH on breath with slurred speech,disheveled appearance) Skin: Positive for: Normal Color Eye Exam: Positive for: Normal appearance, Conjunctival injection ENT: Positive for: Normal ENT Inspection, Other (alcohol on breath) Neck: Positive for: Normal Cardiovascular/Chest: Positive for: Regular Rate, Rhythm Respiratory: Positive for: Normal Breath Sounds Gastrointestinal/Abdominal: Positive for: Soft Extremity: Positive for: Other (no evidence of IVDA) Neurologic/Psych: Positive for: Alert, Other (slurred speech) - Progress ED Course And Treament: Pt was sedated,will observe until clinically returns to sobriety Medical Decision Making Medical Decision Making: Impressiom: Intoxication Plan: -- Observation in 4 point restraints pending clinical sobriety Scribe Attestation: Documented by Hali Gomez acting as a scribe for Annika Al MD. Provider Attestation: All medical record entries made by the Scribe were at my direction and personally dictated by me. I have reviewed the chart and agree that the record accurately reflects my personal performance of the history, physical exam, medical decision making, and the department course for this patient. I have also personally directed, reviewed, and agree with the discharge instructions and disposition. Disposition - Clinical Impression Clinical Impression: Alcohol abuse with alcohol-induced disorder - Patient ED Disposition Is Patient to be Admitted: Transfer of Care - Disposition Disposition Time: 10:12 Condition: STABLE Instructions: Alcohol Abuse and Alcoholism (DC) Forms: [employer] (Greek)
--- NOTE | 2018-01-10 00:20 | ED PDOC ---
- ECG O2 Sat by Pulse Oximetry: 97 Medical Decision Making Medical Decision Making: Time: 19:00 Patient signed over to me by Dr. Al pending sobriety. Time: 00:16 Upon reevaluation, patient A&Ox3 in ED with normal speech, and steady gait. Patient stable for discharge. Scribe Attestation: Documented by Toni Shah, acting as a scribe for Pineda Madera MD. Provider Scribe Attestation: All medical record entries made by the Scribe were at my direction and personally dictated by me. I have reviewed the chart and agree that the record accurately reflects my personal performance of the history, physical exam, medical decision making, and the department course for this patient. I have also personally directed, reviewed, and agree with the discharge instructions and disposition. Disposition Counseled Patient/Family Regarding: Diagnosis - Clinical Impression Clinical Impression: Alcohol abuse with alcohol-induced disorder - POA Present On Arrival: None - Disposition Disposition: Routine/Home Disposition Time: 00:16 Condition: STABLE Instructions: Alcohol Abuse and Alcoholism (DC) Forms: [employer] (Lithuanian)
[2018-01-10 00:49] VITALS: BP 115/77; PULSE 100; RESP 20
[2018-01-11 21:49] VITALS: O2SAT 97
== END 2018-01-10 01:30 | disposition home or self-care (01) ==
LOC: H.ER 15:51
DX: F10.10 Alcohol abuse, uncomplicated (principal)
CPT/HCPCS: 82948; 96372; 99285; J2060

== ENCOUNTER 2018-01-12 19:13 | Emergency (ER) | payer MEDICAID ==
[2018-01-12 19:13] VITALS: BMI 24.3
[2018-01-12 19:24] VITALS: TEMP 98
[2018-01-12] MEDS ORDERED: DiphenhydrAMINE 50 mg/ml Inj ONE (19:49)
[2018-01-12] MEDS ORDERED: DiphenhydrAMINE 50 mg/ml Inj IM STA (19:53)
--- NOTE | 2018-01-12 19:56 | ED PDOC ---
HPI: Psych/Substance Abuse Chief Complaint (Nursing): Alcohol Ingestion Past Medical History Vital Signs: Last Vital Signs Temp 98.0 F 01/12/18 19:17 Pulse 117 H 01/12/18 19:17 Resp 16 01/12/18 19:17 BP 123/66 01/12/18 19:17 Pulse Ox 98 01/12/18 19:17 - Medical History PMH: Denies: HIV, HTN, Chronic Kidney Disease, Sexually Transmitted Disease - Family History Family History: States: Unknown Family Hx - Immunization History Hx Tetanus Toxoid Vaccination: No Hx Influenza Vaccination: No Hx Pneumococcal Vaccination: No - Home Medications Home Medications: Ambulatory Orders Medication Instructions Recorded No Known Home Med 12/31/17 - Allergies Allergies/Adverse Reactions: Allergies Allergy/AdvReac Type Severity Reaction Status Date / Time ibuprofen Allergy ANGIOEDEMA Verified 12/31/17 15:32 - ECG O2 Sat by Pulse Oximetry: 98 Medical Decision Making Medical Decision Making: Initial Impression: Initial Plan: --Reevaluation 19:45 --Patient is openly hostile and showing violent tendencies. Appears very agitated, will relieve agitation with medication. 21:50 -Patient alcohol level is 345mg/dL. Disposition - Clinical Impression Clinical Impression: Alcohol abuse with intoxication, Alcohol use, Alcohol abuse with uncomplicated intoxication - Disposition Disposition Time: 23:40 Condition: STABLE Instructions: Alcohol Abuse and Alcoholism (DC) Forms: [employer] (Azerbaijani)
[2018-01-13 06:52] VITALS: BP 120/62; PULSE 92; RESP 18
[2018-01-14 10:46] VITALS: O2SAT 98
== END 2018-01-13 06:42 | disposition home or self-care (01) ==
LOC: H.ER 19:13
DX: F10.120 Alcohol abuse with intoxication, uncomplicated (principal); Y90.8 Blood alcohol level of 240 mg/100 ml or more
CPT/HCPCS: 80320; 96372; 99284; J1200; J1630; J2060

== ENCOUNTER 2018-01-27 15:44 | Emergency (ER) | payer MEDICAID ==
[2018-01-27 15:44] VITALS: BMI 24.3
--- NOTE | 2018-01-27 15:51 | ED PDOC ---
HPI: Psych/Substance Abuse Time Seen by Provider: 01/27/18 15:48 Chief Complaint (Nursing): Alcohol Ingestion Chief Complaint (Provider): etoh History Per: Patient, EMS Additional Complaint(s): 42-year-old male presents to emergency department via ambulance for evaluation of acute alcohol intoxication. Patient was found intoxicated in public. Upon arrival he offers no acute complaints. Patient admits to drinking daily. Past Medical History Reviewed: Historical Data, Nursing Documentation, Vital Signs - Medical History PMH: No Chronic Diseases - Family History Family History: States: No Known Family Hx - Social History Current smoker - smoking cessation education provided: No Alcohol: > 2 Drinks/Day Drugs: Denies - Home Medications Home Medications: Ambulatory Orders Medication Instructions Recorded No Known Home Med 12/31/17 - Allergies Allergies/Adverse Reactions: Allergies Allergy/AdvReac Type Severity Reaction Status Date / Time ibuprofen Allergy ANGIOEDEMA Verified 01/27/18 15:47 Review of Systems ROS Statement: Except As Marked, All Systems Reviewed And Found Negative Psych: Positive for: Other (etoh) Physical Exam - Reviewed Nursing Documentation Reviewed: Yes Vital Signs Reviewed: Yes - Physical Exam Appears: Positive for: Well, Non-toxic, No Acute Distress Skin: Negative for: Rash Eye Exam: Positive for: Normal appearance Cardiovascular/Chest: Positive for: Regular Rate, Rhythm Respiratory: Positive for: Normal Breath Sounds Neurologic/Psych: Positive for: Alert, Other (intoxicated, answers some questions appropriately) - ECG O2 Sat by Pulse Oximetry: 97 Pulse Ox Interpretation: Normal Medical Decision Making Medical Decision Makin42 year old acutely intoxicated male Plan: Glucose POC BAL 4:40 pm: BAL is 287, fingerstick is 95 6:30 pm: vital signs stable, patient is more alert 7:30 pm: Patient got out of bed, has unsteady gait, will continue to monitor Disposition - Clinical Impression Clinical Impression: Alcohol intoxication - Patient ED Disposition Is Patient to be Admitted: Transfer of Care - Disposition Disposition: Transfer of Care Disposition Time: 20:00 Condition: FAIR Forms: [facility] (Korean) Patient Signed Over To: Radha Candelaria Handoff Comments: Case was signed out pending sobriety and final disposition
--- NOTE | 2018-01-27 21:22 | ED PDOC ---
- ECG O2 Sat by Pulse Oximetry: 97 - Progress ED Course And Treament: Case endorsed to chart writer from Eddy ALVARADO pending clinical sobriety 21:15 Patient awake, states he feels dizzy and has a "bump" on his head and does not remember how he got that. Patient states in addition to drinking that he smoked what he thought was marijuana tonight, but is not certain what it was. CT head and urine drug screen ordered Patient also complaining of left eye irritation/drainage x 4 days. Left conjunctiva injected, yellow purulent drainage noted. PERRLA. EOMI. No periorbital swelling, tenderness, erythema EXAM: CT Head Without Intravenous Contrast CLINICAL HISTORY: 42 years old, male; Injury or trauma; Fall; Initial encounter ; Concussion / head injury; Consciousness not specified; Injury details: Patient states: Right temporal side hurts; Additional info: ETOH, head injury TECHNIQUE: Axial computed tomography images of the head/brain without intravenous contrast. All CT scans at this facility use one or more dose reduction techniques, viz.: automated exposure control; ma/kV adjustment per patient size (including targeted exams where dose is matched to indication; i.e. head); or iterative reconstruction technique. COMPARISON: CT - HEAD W/O CONTRAST 2017-05-07 13:08 FINDINGS: Brain: Unremarkable. No hemorrhage. No significant white matter disease. No edema. Ventricles: Unremarkable. No ventriculomegaly. Bones/joints: Unremarkable. No acute fracture. Soft tissues: Edema in the soft tissues over the right temporal region. Sinuses: Mild mucosal thickening in the ethmoid air cells. Mastoid air cells: Unremarkable as visualized. No mastoid effusion. IMPRESSION: Edema in the soft tissues over the right temporal region. No fluid collection is identified. 1:30 Patient awake, alert, oriented x3. Ambulating steady gait. States he is feeling better. Vitals stable Rx Erythromycin opth ointment given. Advised follow up PMD 2-3 days. Return precautions given. Disposition - Clinical Impression Clinical Impression: Polysubstance abuse, Head injury, Conjunctivitis - POA Present On Arrival: None - Disposition Referrals: [facility] [Outside] Disposition: Routine/Home Disposition Time: 01:30 Condition: IMPROVED Prescriptions: Erythromycin 0.5% [Erythromycin] 1 applic OS Q6 #1 tube Instructions: Conjunctivitis ([place]key[place]), Closed Head Injury, Polysubstance Abuse
[2018-01-27 22:30] LABS: BARBITURATES, UR NEGATIVE (NEGATIVE); BENZODIAZEPINES, UR NEGATIVE (NEGATIVE); OPIATES, UR NEGATIVE (NEGATIVE); PHENCYCLIDINE, UR POSITIVE (NEGATIVE)
[2018-01-28 01:27] VITALS: BP 128/86; PULSE 92; RESP 18; TEMP 98.4
[2018-01-28 01:38] VITALS: O2SAT 97
--- NOTE | 2018-01-28 09:49 | CT ---
PROCEDURE: CT HEAD WITHOUT CONTRAST. HISTORY: ETOH, head injury COMPARISON: None available. TECHNIQUE: Axial computed tomography images were obtained through the head/brain without intravenous contrast. Radiation dose: Total exam DLP = mGy-cm. This CT exam was performed using one or more of the following dose reduction techniques: Automated exposure control, adjustment of the mA and/or kV according to patient size, and/or use of iterative reconstruction technique. FINDINGS: HEMORRHAGE: No acute parenchymal, subarachnoid or extra-axial hemorrhage. BRAIN: No mass effect or edema. No atrophy or chronic microvascular ischemic changes. VENTRICLES: Unremarkable. No hydrocephalus. CALVARIUM: No acute calvarial fractures. Mild right temporoparietal scalp contusion/soft tissue swelling. PARANASAL SINUSES: Unre mild mucosal thickening well within the ethmoid air complex. All MASTOID AIR CELLS: Unremarkable as visualized. No inflammatory changes. OTHER FINDINGS: None. IMPRESSION: No acute intracranial hemorrhage. Mild right temporoparietal scalp contusion/soft tissue swelling. Preliminary report provided by overnight radiology service.
== END 2018-01-28 01:28 | disposition home or self-care (01) ==
LOC: H.ER 15:44
DX: F10.129 Alcohol abuse with intoxication, unspecified (principal); S09.90XA Unspecified injury of head, initial encounter; H10.9 Unspecified conjunctivitis

== ENCOUNTER 2018-02-23 19:31 | Emergency (ER) | payer MEDICAID ==
[2018-02-23 19:31] VITALS: BMI 21.4
[2018-02-23 19:38] VITALS: O2SAT 98
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
--- NOTE | 2018-02-24 00:04 | CT ---
EXAM: CT Head Without Intravenous Contrast EXAM DATE/TIME: 02/23/2018 8:00 PM CLINICAL HISTORY: 42 years old, male; Condition or disease; Other: ETOH; Additional info: Intoxicated TECHNIQUE: Axial computed tomography images of the head/brain without intravenous contrast. All CT scans at this facility use one or more dose reduction techniques, viz.: automated exposure control; ma/kV adjustment per patient size (including targeted exams where dose is matched to indication; i.e. head); or iterative reconstruction technique. Coronal and sagittal reformatted images were created and reviewed. COMPARISON: Prior head CT of 2018-01-27 FINDINGS: BRAIN: No significant acute abnormality identified. No acute hemorrhage seen within the brain. No acute extra-axial fluid collections visualized. No evidence of significant mass effect within the brain. VENTRICLES: No evidence of significant hydrocephalus. BONES/JOINTS: No acute fractures or other acute bony abnormality noted. SOFT TISSUES: No acute abnormality of the visualized soft tissues is seen. SINUSES: Visualized paranasal sinuses appear clear. MASTOID AIR CELLS: Mastoid air cells appear clear. IMPRESSION: - No acute findings seen within the brain. - See above for remaining findings.
[2018-02-24 03:48] VITALS: BP 115/85; PULSE 85; RESP 16; TEMP 98.3
== END 2018-02-24 03:45 | disposition home or self-care (01) ==
LOC: H.ER 19:31
DX: F10.129 Alcohol abuse with intoxication, unspecified (principal); F10.951 Alcohol use, unspecified with alcohol-induced psychotic disorder with hallucinations
CPT/HCPCS: 70450; 80320; 96372; 99284; J1630; J2060

== ENCOUNTER 2018-03-27 15:41 | Emergency (ER) | payer MEDICAID ==
[2018-03-27 15:41] VITALS: BMI 21.4
[2018-03-27 15:59] VITALS: TEMP 98.2
[2018-03-27] MEDS ORDERED: Multivitamin (MVI) 10 ML, Thiamine 100 MG, Folic Acid 1 MG in Dextrose 5%/0.45% NS 1,00... IV ONE (16:24)
--- NOTE | 2018-03-27 16:24 | ED PDOC ---
HPI: Psych/Substance Abuse Time Seen by Provider: 03/27/18 16:05 Chief Complaint (Nursing): Substance Abuse Chief Complaint (Provider): Alcohol Intoxication ED Caveat: Intoxicated History Per: Patient History/Exam Limitations: intoxication Current Symptoms Are (Timing): Still Present Modifying Factor(s): Alcohol Additional Complaint(s): 42 year old male with a history of alcohol abuse presents to the ED via EMS. Patient is poorly responsive. History could not be obtained due to patient`s intoxicated state. PMD: No Family Provider Past Medical History Reviewed: Historical Data, Nursing Documentation, Vital Signs Vital Signs: Last Vital Signs Temp 98.2 F 03/27/18 15:55 Pulse 92 H 03/27/18 15:55 Resp 20 03/27/18 15:55 BP 103/61 03/27/18 15:55 Pulse Ox 96 03/27/18 15:55 - Medical History PMH: No Chronic Diseases - Family History Family History: States: Unknown Family Hx - Social History Alcohol: > 2 Drinks/Day - Immunization History Hx Tetanus Toxoid Vaccination: No Hx Influenza Vaccination: No Hx Pneumococcal Vaccination: No - Home Medications Home Medications: Ambulatory Orders Medication Instructions Recorded No Known Home Med 02/03/18 - Allergies Allergies/Adverse Reactions: Allergies Allergy/AdvReac Type Severity Reaction Status Date / Time ibuprofen Allergy ANGIOEDEMA Verified 03/27/18 15:55 Review of Systems Review Of Systems: ROS cannot be obtained secondary to pt's inabilty to answer questions. Physical Exam - Reviewed Nursing Documentation Reviewed: Yes Vital Signs Reviewed: Yes - Physical Exam Appears: Positive for: No Acute Distress (dissheveled) Head Exam: Positive for: ATRAUMATIC, NORMAL INSPECTION, NORMOCEPHALIC Skin: Positive for: Normal Color, Warm, Dry Eye Exam: Positive for: EOMI, Nystagmus (horizontal), Conjunctival injection, Other (pupil 2mm bilateral, opens eye to painful stimuli) ENT: Positive for: Pharynx Is (clear with normal gag reflex) Neck: Positive for: Painless ROM, Supple Cardiovascular/Chest: Positive for: Regular Rate, Rhythm. Negative for: Murmur Respiratory: Positive for: Normal Breath Sounds. Negative for: Respiratory Distress Gastrointestinal/Abdominal: Positive for: Soft. Negative for: Tenderness Back: Positive for: Normal Inspection. Negative for: Decreased ROM Extremity: Positive for: Normal ROM. Negative for: Deformity Lymphatic: Negative for: Adenopathy Neurologic/Psych: Negative for: Alert (responsive), Oriented - Laboratory Results Result Diagrams: 03/27/18 16:44 03/27/18 16:44 - ECG O2 Sat by Pulse Oximetry: 96 (RA) Pulse Ox Interpretation: Normal Medical Decision Making Medical Decision Making: Time: 162 Initial Impression: intoxication Differential Diagnosis includes but is not limited to: alcohol abuse, alcohol intoxication, drug abuse, dehydration, electrolyte abnormalities Reviewed previous charts: Multiple visits to this and other ERs for alcohol intoxication Initial Plan: --Head w/o contrast CT --Alcohol serum --CMP --Drug screen --Phosphorus --ED Urine dipstick --CBC w/ Differential --Dextrose 5%/0.45% NS --Service Greeter --IV Insertion --Glucose, Blood, POC --Reevaluation Time: 173 PROCEDURE: CT HEAD WITHOUT CONTRAST. HISTORY: ams COMPARISON: Comparison is made with 02/23/2018 TECHNIQUE: Axial computed tomography images were obtained through the head/brain without intravenous contrast. Radiation dose: Total exam DLP = 1716.9 mGy-cm. This CT exam was performed using one or more of the following dose reduction techniques: Automated exposure control, adjustment of the mA and/or kV according to patient size, and/or use of iterative reconstruction technique. FINDINGS: HEMORRHAGE: No intracranial hemorrhage. BRAIN: No mass effect or edema. Mild atrophy again noted. VENTRICLES: Unremarkable. No hydrocephalus. CALVARIUM: Unremarkable. PARANASAL SINUSES: Unremarkable as visualized. No significant inflammatory changes. MASTOID AIR CELLS: Unremarkable as visualized. No inflammatory changes. OTHER FINDINGS: None. IMPRESSION: No evidence of acute intracranial hemorrhage intracranial collection mass effect or midline shift. 1800 Labs demonstrate elevated BAL. Pt continues to be sleeping comfortably. Arousable to loud voice. Pt's BP low but responded well to IV hydration 2000 Pt awake and requesting his belongings. Steady gait with no signs of withdrawal. Educated on dangers of alcohol and advised follow up. Stable for discharge. Scribe Attestation: Documented by Glenroy Mahoney, acting as a scribe for Ana Luisa Gomes MD Provider Scribe Attestation: All medical record entries made by the Scribe were at my direction and personally dictated by me. I have reviewed the chart and agree that the record accurately reflects my personal performance of the history, physical exam, medical decision making, and the department course for this patient. I have also personally directed, reviewed, and agree with the discharge instructions and disposition. Disposition - Clinical Impression Clinical Impression: Alcohol intoxication - Disposition Referrals: Alcoholics Anonymous [Outside] Disposition: Routine/Home Disposition Time: 20:00 Condition: IMPROVED Instructions: Alcohol Abuse and Alcoholism (DC) Forms: [facility] (Mongolian)
[2018-03-27 16:51] LABS: BASO # 0.1 K/uL (0.0-0.2); BASO % 0.6 % (0.0-2.0); EOS # 0.4 K/uL (0.0-0.7); EOS % 4.8 % (0.0-4.0); HEMOGLOBIN 12.8 g/dL (12.0-18.0); LYMPH # 2.1 K/uL (1.0-4.3); LYMPH % 25.2 % (20.0-40.0); MEAN CELL VOLUME 97.8 fl (80.0-94.0); MEAN CORPUSCULAR HEMOGLOBIN 33.3 pg (27.0-31.0); MEAN CORPUSCULAR HGB CONC 34.1 g/dL (33.0-37.0); MEAN PLATELET VOLUME 7.6 fl (7.2-11.7); MONO # 0.5 K/uL (0.0-0.8); MONO % 6.5 % (0.0-10.0); NEUT # 5.2 K/uL (1.8-7.0); NEUT % 62.9 % (50.0-75.0); RBC 3.84 Mil/uL (4.40-5.90); RED CELL DISTRIBUTION WIDTH 14.1 % (11.5-14.5); WHITE BLOOD COUNT 8.3 K/uL (4.8-10.8)
[2018-03-27 17:07] LABS: ALB/GLOB RATIO 1.1 (1.0-2.1); ALBUMIN 3.8 g/dL (3.5-5.0); ALT/SGPT 31 U/L (21-72); AST/SGOT 39 U/L (17-59); BLOOD UREA NITROGEN 9 mg/dl (9-20); CALCIUM 8.5 mg/dL (8.4-10.2); GFR AFRICAN-AMERICAN > 60; GFR NON-AFRICAN AMERICAN > 60
--- NOTE | 2018-03-27 17:40 | CT ---
PROCEDURE: CT HEAD WITHOUT CONTRAST. HISTORY: ams COMPARISON: Comparison is made with 02/23/2018 TECHNIQUE: Axial computed tomography images were obtained through the head/brain without intravenous contrast. Radiation dose: Total exam DLP = 1716.9 mGy-cm. This CT exam was performed using one or more of the following dose reduction techniques: Automated exposure control, adjustment of the mA and/or kV according to patient size, and/or use of iterative reconstruction technique. FINDINGS: HEMORRHAGE: No intracranial hemorrhage. BRAIN: No mass effect or edema. Mild atrophy again noted. VENTRICLES: Unremarkable. No hydrocephalus. CALVARIUM: Unremarkable. PARANASAL SINUSES: Unremarkable as visualized. No significant inflammatory changes. MASTOID AIR CELLS: Unremarkable as visualized. No inflammatory changes. OTHER FINDINGS: None. IMPRESSION: No evidence of acute intracranial hemorrhage intracranial collection mass effect or midline shift.
[2018-03-27] MEDS ORDERED: Sodium Chloride 0.9% 1,000 ML IV STA ×2 (18:11→19:06)
[2018-03-27 19:18] VITALS: BP 97/56; PULSE 89; RESP 18
[2018-03-27] MEDS ORDERED: Thiamine 100 mg/ml Inj IM STA (20:10)
[2018-03-27 20:40] VITALS: O2SAT 96
== END 2018-03-27 21:00 | disposition home or self-care (01) ==
LOC: H.ER 15:41
DX: F10.129 Alcohol abuse with intoxication, unspecified (principal); Y90.8 Blood alcohol level of 240 mg/100 ml or more
CPT/HCPCS: 70450; 80053; 80320; 82948; 83735; 84100; 85025; 96360; 96372; 99285; J3411; J7030

== ENCOUNTER 2018-08-22 18:17 | Emergency (ER) | payer MEDICAID ==
[2018-08-22 18:17] VITALS: BMI 18.8
[2018-08-22 18:25] VITALS: BP 112/75; PULSE 94; RESP 18; TEMP 98; O2SAT 98
--- NOTE | 2018-08-22 18:28 | ED PDOC ---
HPI: Psych/Substance Abuse Time Seen by Provider: 08/22/18 18:27 Chief Complaint (Nursing): Alcohol Ingestion Chief Complaint (Provider): etoh History Per: Patient, EMS Additional Complaint(s): 43-year-old male with history of alcohol abuse presents via ambulance acutely intoxicated. Patient was brought in because he was found asleep on the street. Upon arrival he admits to drinking and offers no acute complaints. Patient is noted to have a recently sutured laceration to right eyebrow region and swelling around right eye. PMD: none Past Medical History Reviewed: Historical Data, Nursing Documentation, Vital Signs Vital Signs: Last Vital Signs Temp 98 F 08/22/18 18:23 Pulse 94 H 08/22/18 18:23 Resp 18 08/22/18 18:23 BP 112/75 08/22/18 18:23 Pulse Ox 98 08/22/18 18:23 - Medical History PMH: No Chronic Diseases - Family History Family History: States: No Known Family Hx - Social History Alcohol: > 2 Drinks/Day Drugs: Cannabis, Other (PCP) - Immunization History Hx Tetanus Toxoid Vaccination: No Hx Influenza Vaccination: No Hx Pneumococcal Vaccination: No - Home Medications Home Medications: Ambulatory Orders Medication Instructions Recorded No Known Home Med 05/09/18 - Allergies Allergies/Adverse Reactions: Allergies Allergy/AdvReac Type Severity Reaction Status Date / Time ibuprofen Allergy ANGIOEDEMA Verified 08/22/18 18:23 Review of Systems ROS Statement: Except As Marked, All Systems Reviewed And Found Negative Psych: Positive for: Other (etoh) Physical Exam - Reviewed Nursing Documentation Reviewed: Yes Vital Signs Reviewed: Yes - Physical Exam Appears: Positive for: Well, Non-toxic, No Acute Distress Skin: Positive for: Normal Color. Negative for: Rash Eye Exam: Positive for: Other (Sutured laceration noted to right lateral eyebrow, there is a subconjunctival hemorrhage noted to right eye with right eye periorbital swelling and ecchymosis) Neck: Positive for: Normal Cardiovascular/Chest: Positive for: Regular Rate, Rhythm Respiratory: Positive for: Normal Breath Sounds. Negative for: Wheezing, Respiratory Distress Extremity: Positive for: Normal ROM Neurologic/Psych: Positive for: Other (Alert, acutely intoxicated, answer some questions appropriately) - ECG O2 Sat by Pulse Oximetry: 98 Pulse Ox Interpretation: Normal Medical Decision Making Medical Decision Makin-year-old acutely intoxicated male Previous records reviewed, patient was seen yesterday at [facility] and note indicates that patient fell in ED. Sutures were placed yesterday in ED as per last note. Plan: Glucose POC BAL CT head and facial bones Fingerstick is 91 mechanical engineering technician completed property checklist and found unknown illegal substance on patient's person. Substance safely placed in specimen bag and [place] police were called. Disposition - Clinical Impression Clinical Impression: Alcohol intoxication, Head injury - Patient ED Disposition Is Patient to be Admitted: Transfer of Care - Disposition Disposition: Transfer of Care Disposition Time: 20:00 Condition: FAIR Forms: [email or web address] (Spanish) Patient Signed Over To: Leroy Cleaning Handoff Comments: Case was signed out pending diagnostic testing results and final disposition
--- NOTE | 2018-08-23 00:10 | ED PDOC ---
HPI: Psych/Substance Abuse Time Seen by Provider: 08/22/18 18:27 Chief Complaint (Nursing): Alcohol Ingestion Past Medical History Vital Signs: Last Vital Signs Temp 98 F 08/22/18 18:23 Pulse 94 H 08/22/18 18:23 Resp 18 08/22/18 18:23 BP 112/75 08/22/18 18:23 Pulse Ox 98 08/22/18 19:33 - Medical History PMH: No Chronic Diseases Denies: HIV, HTN, Seizures, Sexually Transmitted Disease - Family History Family History: States: No Known Family Hx, Unknown Family Hx - Social History Alcohol: > 2 Drinks/Day Drugs: Cannabis, Other (PCP) - Immunization History Hx Tetanus Toxoid Vaccination: No Hx Influenza Vaccination: No Hx Pneumococcal Vaccination: No - Home Medications Home Medications: Ambulatory Orders Medication Instructions Recorded No Known Home Med 05/09/18 - Allergies Allergies/Adverse Reactions: Allergies Allergy/AdvReac Type Severity Reaction Status Date / Time ibuprofen Allergy ANGIOEDEMA Verified 08/22/18 18:23 - ECG O2 Sat by Pulse Oximetry: 98 Disposition - Clinical Impression Clinical Impression: Alcohol intoxication, Head injury - Disposition Disposition: Transfer of Care Disposition Time: 20:00 Condition: FAIR Forms: [facility] (Italian)
--- NOTE | 2018-08-23 00:22 | ED PDOC ---
- ECG O2 Sat by Pulse Oximetry: 98 - Progress ED Course And Treament: 1999 Signed out to me pending CT report and sobriety 2044 On my initial evaluation, pt. sleeping comfortably. No distress. 0023 CT head w/o contrast: no ICH CT maxillofacial w/o contrast: ethomoid sinusitis, no fx. 0250 On re-evaluation, pt. in no distress. Gait steady, unassisted, No slurred speech. Clinically sober. Disposition - Clinical Impression Clinical Impression: Alcohol intoxication, Head injury, Sinusitis - POA Present On Arrival: None - Disposition Referrals: [facility] [Outside] Disposition: Routine/Home Disposition Time: 02:58 Condition: IMPROVED Additional Instructions: ZAFAR CASILLAS, thank you for letting us take care of you today. Your provider was Ramiro Cho MD and you were treated for ETOH. The emergency medical care you received today was directed at your acute symptoms. If you were prescribed any medication, please fill it and take as directed. It may take several days for your symptoms to resolve. Return to the Emergency Department if your symptoms worsen, do not improve, or if you have any other problems. Please contact your doctor or call one of the physicians/clinics you have been referred to that are listed on the Patient Visit Information form that is included in your discharge packet. Bring any paperwork you were given at discharge with you along with any medications you are taking to your follow up visit. Our treatment cannot replace ongoing medical care by a primary care provider outside of the emergency department. Thank you for allowing the [facility] team to be part of your care today. If you had an X-Ray or CT scan: A Radiologist will review the ED reading if any change in treatment is needed we will contact you. If you had a blood, urine, or wound culture: It will take several days for the results, if any change in treatment is needed we will contact you. If you had an STI test: It will take 48 hours for the results. Please call after 1 week if you have not heard back. Prescriptions: Amoxicillin/Clavulanate [Augmentin 500 MG-125 MG] 1 tab PO BID #20 tab Instructions: Sinusitis, Adult (DC), Minor Head Injury (DC), Alcohol Abuse and Alcoholism (DC) Forms: [employer] (Sinhala) Print Language: FRENCH
--- NOTE | 2018-08-23 11:45 | CT ---
Date of service: 08/22/2018 PROCEDURE: CT HEAD WITHOUT CONTRAST. HISTORY: trauma COMPARISON: 03/27/2018 CT head. August 22, 2018. Maxillofacial CT TECHNIQUE: Axial computed tomography images were obtained through the head/brain without intravenous contrast. Supplemental Coronal and Sagittal projections created and reviewed. Radiation dose: Total exam DLP = 84.52 mGy-cm. This CT exam was performed using one or more of the following dose reduction techniques: Automated exposure control, adjustment of the mA and/or kV according to patient size, and/or use of iterative reconstruction technique. FINDINGS: HEMORRHAGE: No intracranial hemorrhage. BRAIN: No mass effect or edema. No atrophy or chronic microvascular ischemic changes. VENTRICLES: Unremarkable. No hydrocephalus. CALVARIUM: Unremarkable. PARANASAL SINUSES: Unremarkable as visualized. No significant inflammatory changes. MASTOID AIR CELLS: Unremarkable as visualized. No inflammatory changes. OTHER FINDINGS: Right periorbital soft tissue swelling without visible ocular abnormality. Old nasal bone fractures. IMPRESSION: No acute intracranial abnormalities. No significant findings to account for the clinical presentation. No significant intracranial change. Concordant results (preliminary interpretation) provided by [employer]. Procedure Completed: 22:37. Preliminary Report: Dictated and Authenticated: 23:15. Final Interpretation: 11:41. August 23, 2018
--- NOTE | 2018-08-23 11:48 | CT ---
Date of service: 08/22/2018 PROCEDURE: CT MAXILLOFACIAL BONES WITHOUT CONTRAST HISTORY: trauma COMPARISON: August 22, 2018. CT head 05/07/[address] TECHNIQUE: Contiguous axial CT images of the maxillofacial bones were obtained. Coronal and sagittal reformats were generated. Radiation dose: Total exam DLP = 831.34 mGy-cm. This CT exam was performed using one or more of the following dose reduction techniques: Automated exposure control, adjustment of the mA and/or kV according to patient size, and/or use of iterative reconstruction technique. FINDINGS: NASAL BONES: Old nasal bone fractures. ORBITS: Periorbital soft tissue swelling on the right. No ocular or retro conal abnormality detected. PARANASAL SINUSES/ MASTOIDS: Clear. MAXILLA: Stable depressed fracture anterior wall of the right maxilla. MANDIBLE/ TEMPOROMANDIBULAR JOINTS: Unremarkable. SKULL BASE: Unremarkable. TEMPORAL BONES: Middle ears and mastoid grossly unremarkable. OTHER FINDINGS: None. IMPRESSION: Right periorbital soft tissue swelling without globe or retro conal abnormality. Old fractures of nasal bones and anterior wall of the right maxillary sinus. Concordant results (preliminary interpretation) provided by [employer] [facility]. Procedure Completed: 22:40. Preliminary Report: Dictated and Authenticated: 23:18. Final Interpretation: 11:44. August 23, 2018
== END 2018-08-23 04:14 | disposition home or self-care (01) ==
LOC: H.ER 18:17
DX: F10.129 Alcohol abuse with intoxication, unspecified (principal); S09.90XA Unspecified injury of head, initial encounter; Y92.89 Other specified places as the place of occurrence of the external cause; J32.9 Chronic sinusitis, unspecified